=== PATIENT | female | born 1985 | race Caucasian/White ===

== ENCOUNTER 2019-04-29 21:00 | Inpatient (IN) | payer BC ==
[2019-04-29] MEDS ORDERED: AMPICILLIN - 2 GM in SODIUM CHLORIDE 100 ML IVPB ONE (22:00)
[2019-04-29 22:06] LABS: BASO % 0.3 % (0-2.0); EOS % 0.8 % (0-4.5); HEMATOCRIT 35.6 % (32.4-45.2); HEMOGLOBIN 12.3 GM/dL (10.7-15.3); LYMPH % 18.7 % (8-40); MCH 32.9 pg (25.7-33.7); MCHC 34.6 g/dl (32.0-36.0); MEAN CELL VOLUME 94.9 fl (80-96); MEAN PLT VOLUME 9.7 fl (7.5-11.1); MONO % 5.3 % (3.8-10.2); NEUT % 74.9 % (42.8-82.8); PLATELET COUNT 215 K/MM3 (134-434); RBC 3.75 M/mm3 (3.60-5.2)
[2019-04-29 22:13] LABS: PROTHROMBIN TIME (PATIENT) 11.8 SEC (9.7-13.0)
[2019-04-29] MEDS ORDERED: AMPICILLIN SODIUM 2 GM VIAL ONE (22:14)
[2019-04-29 22:16] LABS: ACTIVATED PTT 27.3 SECONDS (25.2-36.5)
[2019-04-29 22:32] LABS: BLOOD UREA NITROGEN 7.4 mg/dL (7-18); CALCIUM 8.8 mg/dL (8.5-10.1); CREATININE 0.6 mg/dL (0.55-1.3); POTASSIUM 4.2 mmol/L (3.5-5.1)
[2019-04-29 23:22] VITALS: BMI 29.9
[2019-04-29] MEDS ORDERED: FENTANYL/BUPIVACAINE/NS/PF - PCEA - 50 ML DISP.SYRIN EP ONE (23:43)
[2019-04-29] MEDS ORDERED: TUBERCULIN PPD 5 TU/0.1ML SYRINGE (IN PATIENT USE ONLY) ID ONE (23:45)
[2019-04-29] MEDS ORDERED: ELECTROLYTE-148 SOLN 1,000 ML IV SCH (23:45)
[2019-04-30] MEDS ORDERED: NALOXONE HCL 0.4 MG/ML VIAL IVPUSH PRN (00:40)
[2019-04-30] MEDS ORDERED: FENTANYL/BUPIVACAINE/NS/PF - PCEA - 50 ML DISP.SYRIN EP SCH (00:45)
[2019-04-30] MEDS ORDERED: LIDOCAINE HCL 1% PRESERVATIVE FREE - 30ML VIAL ONE (01:03)
--- NOTE | 2019-04-30 01:05 | HP ---
Past Medical History - Admission Chief Complaint: leaking fluid, contractions History of Present Illness: 34 y/o female with SIUP at 38 weeks here with SROM/contractions. SROM at 7 :15pm, contractions continued since that time. complicated by A1GDM. GBS positive. AMA. H/O X 1 History Source: Patient, Medical Record Limitations to Obtaining History: No Limitations (h/o gestational HTN with prior ) - Past Medical History Cardiovascular: Yes: HTN (gestational, this only). No: Aortic Stenosis Pulmonary: No: Asthma, COPD Hepatobiliary: No: Hepatitis B, Hepatitis C Renal/: No: Renal Failure, UTI Reproductive: No: Ectopic , Fibroids, PID ...: 2 ...Para: 1 ...Term: 1 ...: 0 ...Spon : 0 ...Induced : 0 ...Multiple Gestation: 0 ...LMP: 08/07/18 ... Weeks Gestation by Dates: 37.6 ...EDC by Dates: 05/14/19 ...EDC by Sono: 05/14/19 Heme/Onc: No: Anemia Psych: No: Anxiety, Bipolar, Depression - Past Surgical History Past Surgical History: Yes: None Hx Myomectomy: No Hx Transabdominal Cerclage: No - Smoking History Smoking history: Never smoked Have you smoked in the past 12 months: No - Alcohol/Substance Use Hx Alcohol Use: No - Social History ADL: Independent History of Recent Travel: No Home Medications - Allergies Allergies/Adverse Reactions: Allergies Allergy/AdvReac Type Severity Reaction Status Date / Time No Known Allergies Allergy Verified 04/29/19 23:23 - Home Medications Home Medications: Ambulatory Orders Pnv95/Iron Fum/Folic Acid [ Caplet] 1 each PO DAILY 08/25/16 Labetalol HCl [Normodyne -] 200 mg PO BID #60 tablet 08/29/16 Review of Systems - Review of Systems Constitutional: reports: No Symptoms Eyes: reports: No Symptoms HENT: reports: No Symptoms Neck: reports: No Symptoms Cardiovascular: reports: No Symptoms Respiratory: reports: No Symptoms Gastrointestinal: reports: No Symptoms Genitourinary: reports: No Symptoms Breasts: reports: No Symptoms Reported Musculoskeletal: reports: No Symptoms Integumentary: reports: No Symptoms Neurological: reports: No Symptoms Endocrine: reports: No Symptoms Hematology/Lymphatic: reports: No Symptoms Psychiatric: reports: No Symptoms Physical Exam - Maternity Vital Signs: Vital Signs Temperature 98.2 F 04/29/19 22:00 Pulse Rate 70 04/29/19 23:00 Respiratory Rate 18 04/29/19 23:00 Blood Pressure 104/70 04/29/19 23:00 O2 Sat by Pulse Oximetry (%) Constitutional: Yes: Well Nourished, No Distress, Calm Eyes: Yes: Conjunctiva Clear, EOM Intact HENT: Yes: Atraumatic, Normocephalic Cardiovascular: Yes: Regular Rate and Rhythm Lungs: Clear to auscultation Breast(s): Yes: WNL - Abdominal Exam/OB Number of Fetuses: Single Presentation: Vertex Contractions: Yes Regularity: Regular Intensity: Strong Category: I Accelerations: Uniform Decelerations: None - Vaginal Exam/OB Vaginal Bleediing: Yes Speculum Exam: No Dilatation (cm): 6 Amniotic Membrane Status: Ruptured Presentation: Vertex/Position Station: -2 (exam per nursing staff) - Physical Exam Psychiatric: Yes: Alert, Oriented - Labs Lab Results: CBC, BMP 04/29/19 21:40 04/29/19 21:40 Hemorrhage Risk Assessment - Risk Factors Medium Risk Factors: Yes: None High Risk Factors: Yes: None Risk Score: 1 Risk Level: Medium Risk Problem List - Problems (1) Term Code(s): Z34.80 - ENCOUNTER FOR SUPRVSN OF NORMAL , UNSP TRIMESTER (2) Gestational diabetes mellitus (GDM) affecting second Code(s): O24.419 - GESTATIONAL DIABETES MELLITUS IN , UNSP CONTROL Assessment/Plan 34 y/o with SIUP at 38 weeks in labor GDM A 1 GBS positive, ampicillin prophylaxis epidural received, pt feeling pressure anticipate
[2019-04-30] MEDS ORDERED: OXYTOCIN 20 UNITS in 0.9% NS 20 UNIT/1,000 ML INFUS.BAG IV ONE ×2 (01:15→03:22)
[2019-04-30] MEDS ORDERED: METHYLERGONOVINE MALEATE 0.2 MG/1 ML AMP IM ONE (01:43)
[2019-04-30] MEDS ORDERED: MISOPROSTOL 200 MCG TABLET NR ONE (01:47)
[2019-04-30] MEDS ORDERED: AMPICILLIN - 1 GM in SODIUM CHLORIDE 100 ML IVPB SCH (02:00)
--- NOTE | 2019-04-30 02:02 | PN ---
Delivery - Delivery Vaginal Delivery: No Problems Type of Anesthesia: Local, Epidural Episiotomy/Laceration: Right Mediolateral, 1st degree (1st degree abrasion, not bleeding, b/l labia minoral lacerations repaired with 3-0 vicryl) EBL (cc): 400 Delivery, Single - Stages of Labor Date of Delivery: 04/30/19 Date Placenta Delivered: 04/30/19 Placenta: Yes: Spontaneous - Condition of Infant Rn Coronary Care Unit/[place] Present: No Infant Gender: Female Position: Left, OA - 1 Minute Total Score: 9 5 Minutes Total Score: 9 - [place] Feeding Plan Initial Plan: Exclusive throughout hospitalization Remarks - Remarks Remarks: Normal from AP position across intact perineum anterior shoulder (right) delivered with ease along with remainder of 3vc noted, clamped and cut 1st degree abrasion, not bleeding b/l labial minora lacerations noted, repaired with 3-0 vicryl placenta delivered in tact spontaneously uterine atony noted and pt received 1 dose methergine 0.2mg IM in left thigh and also received 1000mcg [place] cytotec scant lochia after delivery mom stable baby to well baby nursery
[2019-04-30] MEDS ORDERED: BISACODYL 10 MG SUPP.RECT RC PRN (02:10)
[2019-04-30] MEDS ORDERED: METHYLERGONOVINE MALEATE 0.2 MG/1 ML AMP IM PRN (02:10)
[2019-04-30] MEDS ORDERED: OXYTOCIN 20 UNITS in 0.9% NS 20 UNIT/1,000 ML INFUS.BAG IV SCH (02:15)
[2019-04-30] MEDS ORDERED: ACETAMINOPHEN 325 MG TABLET (FP) ONE (02:41)
[2019-04-30] MEDS ORDERED: IBUPROFEN 600 MG TABLET (FP) PO ONE (02:41)
[2019-04-30] MEDS: IBUPROFEN 600 MG TABLET (FP) PO PRN ×4 (02:45→21:24)
[2019-04-30] MEDS: ACETAMINOPHEN 325 MG TABLET (FP) PO PRN ×4 (02:45→21:24)
[2019-04-30] MEDS: WITCH HAZEL 50% (TUCKS) 40 PAD/JAR PAD TP PRN (04:49)
[2019-04-30] MEDS: BENZOCAINE 20% 57 GM BOTTLE TP PRN (04:49)
[2019-04-30] MEDS: BENZOCAINE 28 GM HEMORRHOIDAL OINTMENT TP PRN (04:49)
[2019-04-30] MEDS: PRENATAL VITAMINS W/ FOLIC ACID TABLET (FP) PO SCH (10:28)
[2019-04-30] MEDS ORDERED: DIPHTH,PERTUSS(ACELL),TET 0.5 ML DISP.SYRIN IM ONE (11:00)
--- NOTE | 2019-04-30 11:00 | PN ---
Post Progress Note - Subjective Subjective: Pt seen/evaluated and feeling well. Pain controlled. Voiding, passing flatus. Tolerating diet. Lochia rubra, scant per nursing staff overnight. Type of Delivery: Vital Signs: Vital Signs Temperature 98.6 F 04/30/19 09:45 Pulse Rate 76 04/30/19 09:45 Respiratory Rate 18 04/30/19 09:45 Blood Pressure 116/66 04/30/19 09:45 O2 Sat by Pulse Oximetry (%) 96 04/30/19 02:15 Uterus: Yes: Fundus Firm, Fundus @ umbilicus Abdomen/GI: Yes: Abdomen soft Lochia, amount: Small Extremities: Yes: Calves non-tender Perineum: Yes: Intact (b/l labial superficial lacerations) Activity: Ambulating - Labs Labs: CBC WBC 10.0 K/mm3 (4.0-10.0) 04/29/19 21:40 RBC 3.75 M/mm3 (3.60-5.2) 04/29/19 21:40 Hgb 12.3 GM/dL (10.7-15.3) 04/29/19 21:40 Hct 35.6 % (32.4-45.2) D 04/29/19 21:40 MCV 94.9 fl (80-96) 04/29/19 21:40 MCH 32.9 pg (25.7-33.7) 04/29/19 21:40 MCHC 34.6 g/dl (32.0-36.0) 04/29/19 21:40 RDW 14.0 % (11.6-15.6) 04/29/19 21:40 Plt Count 215 K/MM3 (134-434) D 04/29/19 21:40 MPV 9.7 fl (7.5-11.1) 04/29/19 21:40 Absolute Neuts (auto) 7.5 K/mm3 (1.5-8.0) 04/29/19 21:40 Neutrophils % 74.9 % (42.8-82.8) 04/29/19 21:40 Lymphocytes % 18.7 % (8-40) D 04/29/19 21:40 Monocytes % 5.3 % (3.8-10.2) 04/29/19 21:40 Eosinophils % 0.8 % (0-4.5) 04/29/19 21:40 Basophils % 0.3 % (0-2.0) 04/29/19 21:40 Nucleated RBC % 0 % (0-0) 04/29/19 21:40 Problem List - Problems (1) Term Code(s): Z34.80 - ENCOUNTER FOR SUPRVSN OF NORMAL , UNSP TRIMESTER (2) Gestational diabetes mellitus (GDM) affecting second Code(s): O24.419 - GESTATIONAL DIABETES MELLITUS IN , UNSP CONTROL (3) Status post vaginal delivery Code(s): KND2247 - Assessment/Plan PPD#0 s/p normal regular diet PO pain meds monitor bleeding routine care
--- NOTE | 2019-05-01 06:19 | PN ---
Post Progress Note - Subjective Subjective: Pt without complaints. Tolerating diet, ambulating, voiding, passing flatus. Lochia small. Post Day: 1 Type of Delivery: Vital Signs: Vital Signs Temperature 98.0 F 05/01/19 01:32 Pulse Rate 88 05/01/19 01:32 Respiratory Rate 20 05/01/19 01:32 Blood Pressure 111/72 05/01/19 01:32 O2 Sat by Pulse Oximetry (%) 96 04/30/19 02:15 Uterus: Yes: Fundus Firm Abdomen/GI: Yes: Abdomen soft, Passing flatus, Tolerating PO. No: Abdominal Distention, Tender Lochia: Yes: Rubra Lochia, amount: Small Extremities: Yes: Calves non-tender, Edema (trace b/l LE edema, nonpitting, nontender) Perineum: Yes: Intact Activity: Ambulating - Labs Labs: CBC WBC 10.0 K/mm3 (4.0-10.0) 04/29/19 21:40 RBC 3.75 M/mm3 (3.60-5.2) 04/29/19 21:40 Hgb 12.3 GM/dL (10.7-15.3) 04/29/19 21:40 Hct 35.6 % (32.4-45.2) D 04/29/19 21:40 MCV 94.9 fl (80-96) 04/29/19 21:40 MCH 32.9 pg (25.7-33.7) 04/29/19 21:40 MCHC 34.6 g/dl (32.0-36.0) 04/29/19 21:40 RDW 14.0 % (11.6-15.6) 04/29/19 21:40 Plt Count 215 K/MM3 (134-434) D 04/29/19 21:40 MPV 9.7 fl (7.5-11.1) 04/29/19 21:40 Absolute Neuts (auto) 7.5 K/mm3 (1.5-8.0) 04/29/19 21:40 Neutrophils % 74.9 % (42.8-82.8) 04/29/19 21:40 Lymphocytes % 18.7 % (8-40) D 04/29/19 21:40 Monocytes % 5.3 % (3.8-10.2) 04/29/19 21:40 Eosinophils % 0.8 % (0-4.5) 04/29/19 21:40 Basophils % 0.3 % (0-2.0) 04/29/19 21:40 Nucleated RBC % 0 % (0-0) 04/29/19 21:40 Problem List - Problems (1) Term Code(s): Z34.80 - ENCOUNTER FOR SUPRVSN OF NORMAL , UNSP TRIMESTER (2) Gestational diabetes mellitus (GDM) affecting second Code(s): O24.419 - GESTATIONAL DIABETES MELLITUS IN , UNSP CONTROL (3) Status post vaginal delivery Code(s): JGJ8042 - Assessment/Plan regular diet encourage ambulation await a.m. CBC routine care
[2019-05-01 06:49] LABS: BASO % 0.3 % (0-2.0); HEMATOCRIT 25.6 % (32.4-45.2); HEMOGLOBIN 8.7 GM/dL (10.7-15.3); MCH 32.6 pg (25.7-33.7); MCHC 33.9 g/dl (32.0-36.0); MEAN CELL VOLUME 96.1 fl (80-96); MEAN PLT VOLUME 9.3 fl (7.5-11.1); NEUT % 76.7 % (42.8-82.8); PLATELET COUNT 181 K/MM3 (134-434); RBC 2.66 M/mm3 (3.60-5.2); RDW 14.4 % (11.6-15.6); WHITE BLOOD COUNT 13.1 K/mm3 (4.0-10.0)
[2019-05-01] MEDS: ACETAMINOPHEN 325 MG TABLET (FP) PO PRN ×2 (08:43→21:32)
[2019-05-01] MEDS: IBUPROFEN 600 MG TABLET (FP) PO PRN ×2 (08:43→21:32)
--- NOTE | 2019-05-01 09:17 | PN ---
Progress Note (short form) - Note Progress Note: CBC reviewed will start oral Iron BID Problem List - Problems (1) Term Code(s): Z34.80 - ENCOUNTER FOR SUPRVSN OF NORMAL , UNSP TRIMESTER (2) Gestational diabetes mellitus (GDM) affecting second Code(s): O24.419 - GESTATIONAL DIABETES MELLITUS IN , UNSP CONTROL (3) Status post vaginal delivery Code(s): [id number] -
[2019-05-01] MEDS: FERROUS SO4 325 MG TABLET (FP) PO SCH ×2 (09:58→21:28)
[2019-05-01] MEDS: PRENATAL VITAMINS W/ FOLIC ACID TABLET (FP) PO SCH (09:58)
[2019-05-01] MEDS: BENZOCAINE 20% 57 GM BOTTLE TP PRN (16:54)
[2019-05-01] MEDS ORDERED: SENNOSIDES/DOCUSATE COMBO (SENNA PLUS) TABLET (UD) PO PRN (22:00)
[2019-05-02 08:36] VITALS: BP 127/71; PULSE 81; TEMP 98.7
--- NOTE | 2019-05-02 08:41 | DS ---
Physical Exam-DIRECT[employer]S Vital Signs: Vital Signs Temperature 98.7 F 05/02/19 07:50 Pulse Rate 81 05/02/19 07:50 Respiratory Rate 20 05/02/19 07:50 Blood Pressure 127/71 05/02/19 07:50 O2 Sat by Pulse Oximetry (%) 96 04/30/19 02:15 Labs: CBC, BMP 05/01/19 05:58 04/29/19 21:40 Delivery - Delivery Vaginal Delivery: No Problems Type of Anesthesia: Epidural Episiotomy/Laceration: Right Mediolateral, 1st degree (1st degree abrasion, not bleeding, b/l labia minoral lacerations repaired with 3-0 vicryl) EBL (cc): 400 Delivery, Single - Stages of Labor Date 1st Stage Initiatied: 04/29/19 Time 1st Stage Initiated: 22:40 Date 2nd Stage Initiated: 04/30/19 Time 2nd Stage Initiated: 01:02 Date of Delivery: 04/30/19 Time of Delivery: 01:26 Time Placenta Delivered: 01:40 Placenta: Yes: Spontaneous - Condition of Advertising Columnist/Input Output Clerk Present: No Gender: Female Weight: 7 lb 11 oz Position: Left, OA Total Hours ROM (Hrs/Mins): 6/6 - 1 Minute Total Score: 9 5 Minutes Total Score: 9 - Feeding Plan Initial Plan: Exclusive throughout hospitalization Discharge Summary Reason For Visit: RUPTURE OF MEMBRANES Current Active Problems Gestational diabetes mellitus (GDM) affecting second (Acute) Hospital Course: Pt admitted on 04/29 with SROM and labor. Underwent uncomplicated labor and then had . EBL 450, uterine atony after delivery. PT recieved methergine and cytotec immediately after delivery. Lochia stabilized. Hgb on PPD#1 8.4, pt asymptomatic, start on oral Iron. Pt stable and discharged home on post day 2. Condition: Good - Instructions Diet, Activity, Other Instructions: Physical activity Resume your normal everyday activity as tolerated no heavy lifting or exercise until seen by your surgeon. You may walk unlimited amounts and climb stairs. You may resume driving the car when you feel safe and comfortable behind the wheel. No sexual activity as instructed. Wound care You may shower daily, no soaking in tubs/baths/pools for 6 weeks or until cleared by your doctor. Diet There are no dietary restrictions. Eat healthy, high-fiber foods. Drink 6 to 8 glasses of liquid each day. This will assist in keeping your bowels regular. Pain management You may take Tylenol or acetaminophen or Ibuprofen as needed for pain. Call MD for any of the following: Severe pain not relieved by medication Fever of 101 or higher Excessive bleeding or drainage on dressing Inability to urinate Disposition: HOME - Home Medications Comprehensive Discharge Medication List: Ambulatory Orders Pnv95/Iron Fum/Folic Acid [ Caplet] 1 each PO DAILY 08/25/16 Labetalol HCl [Normodyne -] 200 mg PO BID #60 tablet 08/29/16
[2019-05-02] MEDS: FERROUS SO4 325 MG TABLET (FP) PO SCH (09:09)
[2019-05-02] MEDS: PRENATAL VITAMINS W/ FOLIC ACID TABLET (FP) PO SCH (09:09)
[2019-05-02] MEDS: BENZOCAINE 20% 57 GM BOTTLE TP PRN (10:46)
[2019-05-02] MEDS: BENZOCAINE 28 GM HEMORRHOIDAL OINTMENT TP PRN (10:47)
[2019-05-02] MEDS: WITCH HAZEL 50% (TUCKS) 40 PAD/JAR PAD TP PRN (10:48)
== END 2019-05-02 12:55 | disposition home or self-care (01) | DRG 807 ==
LOC: JLDR 21:00 → J3W 04-30 04:12
PROVIDERS: ADMIT Obstetrics & Gynecology; ATTEND Obstetrics & Gynecology
PROC: 0HQ9XZZ Repair Perineum Skin, External Approach (ICD-10-PCS; principal; 2019-04-30)
PROC: 10E0XZZ Delivery of Products of Conception, External Approach (ICD-10-PCS; 2019-04-30)
DX: O24.429 Gestational diabetes mellitus in childbirth, unspecified control (principal); O99.824 Streptococcus B carrier state complicating childbirth; O70.0 First degree perineal laceration during delivery; Z3A.38 38 weeks gestation of pregnancy; Z37.0 Single live birth
CPT/HCPCS: 36415; 59409; 80048; 82962; 85025; 85610; 85730; 86593; 86850; 86900; 86901; 87389

== ENCOUNTER 2025-03-07 13:14 | Emergency (ER) | payer BC ==
[2025-03-07 13:23] VITALS: BP 141/101; PULSE 90; RESP 16; TEMP 98.8; BMI 23.5
== END 2025-03-07 15:01 | disposition home or self-care (01) ==
LOC: JER 13:14
DX: L03.213 Periorbital cellulitis (principal)
CPT/HCPCS: 99283-25